=== PATIENT | male | born 1945 | race Caucasian/White ===

== ENCOUNTER → 2023-10-22 14:23 | Outpatient (REF) | payer MEDICARE, SELFPAY | LOC: RAD 14:23 | PROVIDERS: ATTENDING PHYSICIAN Surgery; REFERRING PHYSICIAN Family Medicine | DX: N13.2 Hydronephrosis with renal and ureteral calculous obstruction (principal) | CPT/HCPCS: 74018 ==

== ENCOUNTER → 2024-02-29 13:53 | Outpatient (REF) | payer MEDICARE, SELFPAY | LOC: HWRAD 13:53 | PROVIDERS: ATTENDING PHYSICIAN Surgery; FAMILY PHYSICIAN Family Medicine | DX: N13.2 Hydronephrosis with renal and ureteral calculous obstruction (principal) | CPT/HCPCS: 74018; 76775 ==

== ENCOUNTER → 2024-04-22 15:42 | Outpatient (REF) | payer OTHER, SELFPAY | LOC: HWRCS 15:42 | PROVIDERS: ATTENDING PHYSICIAN Family Medicine; REFERRING PHYSICIAN Internal Medicine Cardiovascular Disease | DX: I20.9 Angina pectoris, unspecified (principal) | CPT/HCPCS: 93306 ==

== ENCOUNTER → 2024-04-23 08:29 | Outpatient (REF) | payer OTHER, SELFPAY | LOC: DHCBC/DCA 08:29 | PROVIDERS: ATTENDING PHYSICIAN Family Medicine | DX: I20.9 Angina pectoris, unspecified (principal) | CPT/HCPCS: 78452; 93017; A9500; J2785 ==

== ENCOUNTER → 2024-05-14 12:26 | Outpatient (REF) | payer OTHER, SELFPAY | LOC: HWRAD 12:26 | PROVIDERS: ATTENDING PHYSICIAN Internal Medicine Cardiovascular Disease; FAMILY PHYSICIAN Family Medicine | DX: R06.09 Other forms of dyspnea (principal) | CPT/HCPCS: 71046 ==

== ENCOUNTER → 2024-06-19 08:03 | Outpatient (REF) | payer OTHER, SELFPAY | LOC: RAD 08:03 | PROVIDERS: ATTENDING PHYSICIAN Surgery; FAMILY PHYSICIAN Family Medicine | DX: N13.2 Hydronephrosis with renal and ureteral calculous obstruction (principal) | CPT/HCPCS: 74177; Q9967 ==

== ENCOUNTER → 2024-06-27 11:19 | Outpatient (REF) | payer OTHER, SELFPAY | LOC: RADI 11:19 | PROVIDERS: ATTENDING PHYSICIAN Surgery; FAMILY PHYSICIAN Family Medicine | DX: N28.89 Other specified disorders of kidney and ureter (principal) ==

== ENCOUNTER 2024-07-28 08:21 | Day surgery (SDC) | payer OTHER, SELFPAY ==
[2024-07-28] VITALS (26 sets, daily range): BP systolic 62–171; BP diastolic 63–98
[2024-07-28 07:15] LABS: % Basophils 0.3 % (0-2); % Eosinophils 6.7 % (0-6); % Immature Granulocytes 1.3 % (0-0.5); % Lymphocytes 29.3 % (20.5-51.1); % Monocytes 10.1 % (1.7-9.3); % Neutrophils 52.3 % (42.2-75.2); Absolute Eosinophils 0.3 10^3/uL (0-0.7); Absolute Immature Granulocytes 0.1 10^3/uL (0-0.05); Absolute Lymphocytes 1.1 10^3/uL (1.2-3.4); Absolute Monocytes 0.4 10^3/uL (0.1-0.6); Mean Corp Hgb Conc. 35.9 g/dL (33.0-37.0); Mean Corpuscular Hgb 29.2 pg (27.0-31.0); Mean Corpuscular Volume 81.4 fL (80.0-94.0); Mean Platelet Volume 9.7 fL (7.4-10.4); Nucleated Red Blood Cells % 0 % (-); Platelet Count 184 10^3/uL (130-400); Red Blood Cell Count 4.79 10^6/uL (4.70-6.10); Red Cell Dist. Width 14.1 % (11.5-14.5); White Blood Cell Count 3.9 10^3/uL (4.8-10.8)
[2024-07-28 07:25] LABS: INR 0.98; PT 13.3 Sec (11.4-14.6)
[2024-07-28 07:31] LABS: ALT (SGPT) 24 U/L (0-50); AST (SGOT) 27 U/L (17-59); Albumin 4.8 g/dl (3.5-5.0); Alkaline Phosphatase 61 U/L (38-126); Blood Urea Nitrogen 15 mg/dl (9-20); Calcium 9.6 mg/dl (8.4-10.2); Carbon Dioxide 22 mmol/L (22-30); Chloride 108 mmol/L (98-107); Direct Bilirubin 0.3 mg/dl (0.0-0.4); Glucose 162 mg/dl (70-99); Potassium 4.2 mmol/L (3.5-5.1); Sodium 143 mmol/L (135-145); Total Bilirubin 0.7 mg/dl (0.2-1.3); Total Protein 6.7 g/dl (6.3-8.2); eGFR > 60.00
[2024-07-28 08:09] LABS: LDH 160 U/L (120-246)
[2024-07-28] MEDS: NSS 1000 IV ×3 (08:15→19:20)
[2024-07-28] MEDS: DILAUDID 0.25 MG IV ×2 (12:00→14:17)
[2024-07-28 12:35] LABS: Glucose - Point of Care 171 mg/dl (70-99)
--- NOTE | 2024-07-28 12:35 | PTCARENOTE ---
PT states he is not diabetic, rather Pre-diabetic, check Blood sugar, 171
[2024-07-28 16:55] LABS: Glucose - Point of Care 209 mg/dl (70-99)
[2024-07-28] MEDS: CRESTOR 10 MG PO (17:56)
[2024-07-28 22:10] LABS: Glucose - Point of Care 189 mg/dl (70-99)
[2024-07-29] MEDS: NSS 1000 IV (03:06)
[2024-07-29 03:11] VITALS: BP 157/72
--- NOTE | 2024-07-29 07:35 | W.PN.GENERIC ---
Assessment / Plan
-
A/P:
79 yo male with renal right who underwent microwave ablation yesterday.
He is tolerating POs
He is voiding spontaneously without hematuria
Pain is well contrtolled
He is stable for discharge today
I spent over 30 minutes in performing history and physical exam, reviewing previous medical records, laboratory studies and all relevant imaging as well as reviewing the procedure and expected outcome with the patient as well as the follow up and
post procedure expectations
Physician Progress Note
Subjective
Mr. Hope is a pleasant 79-year-old male with past medical history significant for renal colic, prostate cancer with prostatectomy, hyperlipidemia and hypertension who was found to incidentally have a 2.5 cm lesion on his right kidney
concerning for renal cell carcinoma. He had a microwave ablation of this mass yesterday. He tolerated the procedure well. He denies any fever, chills, change in appetite, abdominal pain, nausea, vomiting, flank pain, hematuria or difficulty with
urinary stream.
PMH: Hyperlipidemia, hypertension, borderline diabetes, seasonal allergies, basal cell and squamous cell carcinoma, kidney stones, prostate cancer.
PSH: Tonsillectomy and adenoidectomy, appendectomy, hernia, colon resection, prostatectomy, Mohs surgery to left ear, nose and face.
Social History: Patient denies tobacco use
The patient's current medications were documented and reviewed at the time of this visit.
Current Medications: Atenolol 25 mg by mouth daily, Crestor 10 mg by mouth daily, doxycycline 50 mg 1 capsule by mouth daily, FiberCon q. day, hydrochlorothiazide 12.5 mg 1 capsule daily by mouth, magnesium oxide 400 mg 1 tablet daily by mouth,
metformin 500 mg 1 tablet with a meal 3 times a day, Osteo Bi-Flex regular strength daily, pantoprazole 40 mg 1 tablet by mouth daily, Plavix 75 mg 1 tablet by mouth daily, Rivastigmine 9.5 mg every 24 hours 1 patch transdermal daily, valsartan 320
mg 1 tablet by mouth daily,.
Allergies: NKDA.
Objective
Vital Signs
Temp Pulse Resp BP Pulse Ox
97.7 F 75 16 157/72 95
07/29/24 03:11 07/29/24 03:11 07/29/24 03:11 07/29/24 03:11 07/29/24 03:11
Lab Results
07/28/24 07:04
07/28/24 07:04
Physical examination: This is a well-nourished, well-developed 79-year-old male who is awake, alert and oriented in no acute distress. His color is good. His skin is warm and dry. His neck is supple. His heart is regular. His lungs are clear
throughout. His abdomen is soft and nontender with bowel sounds present. No CVA tenderness. No hemtoma. Dressing CDI. No lower extremity edema. He ambulates independently.
[2024-07-29 07:37] LABS: Glucose - Point of Care 148 mg/dl (70-99)
[2024-07-29 07:41] VITALS: BP 139/76
[2024-07-29] MEDS: PROTONIX 40 MG PO (08:51)
[2024-07-29] MEDS: ORETIC 12.5 MG PO (08:51)
[2024-07-29] MEDS: DIOVAN 320 MG PO (08:51)
[2024-07-29] MEDS: TENORMIN 25 MG PO (08:51)
[2024-07-29] MEDS: NSS IV (09:10)
[2024-07-29] MEDS: GLUCOPHAGE XR EXTENDED RELEASE 500 MG PO (09:11)
--- NOTE | 2024-07-29 10:44 | CM ---
Patient seen at bedside ; IA completed.
Patient states that he will go home with family and that he has no needs for VN. Patient to follow up with physician as directed. Discharge planned for today.
Plan: Discharge to home with no needs.
[2024-07-29 11:06] VITALS: BP 150/78
== END 2024-07-29 11:11 | disposition home or self-care (01) ==
LOC: SDS 08:21
PROVIDERS: ATTENDING PHYSICIAN Radiology Diagnostic Radiology; FAMILY PHYSICIAN Family Medicine; REFERRING PHYSICIAN Surgery
DX: D30.01 Benign neoplasm of right kidney (principal); D68.9 Coagulation defect, unspecified; D68.8 Other specified coagulation defects; N28.89 Other specified disorders of kidney and ureter
CPT/HCPCS: 50592; 88305; 36415; 77013; 80053; 82248; 82962; 83615; 85025; 85610

== ENCOUNTER 2025-01-13 23:40 | Observation (INO) | payer OTHER, SELFPAY ==
[2025-01-13 17:46] VITALS: BP 158/72
[2025-01-13 18:14] LABS: Hematocrit 39.1 % (39.0-52.0); Hemoglobin 13.5 g/dL (13.0-18.0); Mean Corp Hgb Conc. 34.5 g/dL (33.0-37.0); Mean Corpuscular Volume 81.5 fL (80.0-94.0); Nucleated Red Blood Cells % 0 % (-); Platelet Count 203 10^3/uL (130-400); Red Cell Dist. Width 13.9 % (11.5-14.5)
[2025-01-13 18:32] LABS: ALT (SGPT) 28 U/L (0-50); AST (SGOT) 30 U/L (17-59); Albumin 4.7 g/dl (3.5-5.0); Alkaline Phosphatase 53 U/L (38-126); Calcium 9.7 mg/dl (8.4-10.2); Carbon Dioxide 21 mmol/L (22-30); Chloride 107 mmol/L (98-107); Glucose 166 mg/dl (70-99); Potassium 4.1 mmol/L (3.5-5.1); Sodium 140 mmol/L (135-145); Total Protein 7.2 g/dl (6.3-8.2); eGFR 55.53
[2025-01-13 18:37] LABS: Troponin I < 0.012 ng/ml
[2025-01-13 18:41] LABS: Blood Urea Nitrogen 21 mg/dl (9-20)
--- NOTE | 2025-01-13 20:44 | ED.GENMED ---
History of Present Illness
General
Chief Complaint: Breathing Problem
Source: patient
Exam Limitations: none
Time Seen by Provider: 01/13/25 20:44
Nursing documentation reviewed up to this point in time: agreed with
History of Present Illness
History of Present Illness:
79-year-old male with a past medical history as noted presents to the ER for evaluation of shortness of breath. Patient reports onset of symptoms 3 days ago and have been constant since that time. He reports mainly symptoms are with exertion�he
describes that even walking a few steps requires him to stop to catch his breath. He says that this is an acute change from prior. He denies any associated chest pains. He has not had any coughing. Denies any fevers or chills. Has not noticed
any swelling in his legs. He does note that in April shortly after his he was having some shortness of breath and saw his associate professor of art history (Dr. Gill) and had echocardiogram and stress test that were reportedly normal. He says that he
attributed some of this to deconditioning and had been increasing his level of exercise and noticing improvement in his symptoms until 3 days ago.
Past History
Past History
ED Past Medical History: HTN, Hypercholesterolemia, NIDDM and Other (Kidney stones)
Social History
Personal:
Review of Systems
Review of Systems
All Other Systems: ROS reviewed and negative except as documented in HPI and ROS
Constitutional: Denies fever or chills
Respiratory: Reports trouble breathing; Denies cough
Cardiac: Denies chest pain or palpitations
ABD/GI: Denies abdominal pain, nausea or vomiting
: Denies flank pain
Musculoskeletal: Denies edema, neck pain or back pain
Neurological: Denies dizzy or headache
Phy Exam
Physical Exam
Physical Exam:
General: Awake, alert, oriented x3; no acute distress
Head: Normocephalic, atraumatic
Eyes: Conjunctiva normal, EOMI
Throat: Airway intact, handling secretions
Neck: Trachea midline, no JVD
Lungs: Clear to auscultation bilaterally, no wheezing, rales, rhonchi
Heart: Regular rate and rhythm, no murmurs, gallops, or rubs appreciated
Abd: Soft, non distended, nontender
Neuro: Grossly intact
Extremities: No edema in extremities, no calf tenderness, equal pulses in all extremities
Scores
Heart Failure Risk
Heart Failure Risk Score: Not Applicable
Heart Score for Chest Pain Patients
STEMI patient?: Not applicable
Withdrawal Assessment of Alcohol
Withdrawal Assessment Completed?: Not applicable
Course
Orders/Labs/Results
Orders:
Orders
01/13/25 17:51
ECG [Electrocardiogram (*1)] Urgent
Reason for Study: Shortness of Breath
EKG- Treatment ONCE
01/13/25 17:59
Complete Blood Count/With Diff Urgent
Comprehensive Metabolic Panel Urgent
NT-proBNP Urgent
Troponin I Urgent
01/13/25 20:54
Electrocardiogram (*1) Urgent
Reason for Study: Hypertension, Benign
EKG- Treatment ONCE
01/13/25 20:57
CT Chest PE Study Urgent
Comment:
Reason For Exam: worsening SOB
01/13/25 21:12
Troponin I Urgent
01/13/25 22:35
CARDIOLOGY CONSULT Urgent
Consulting Provider: Nolan Long
Was physician already notified: Yes
Abnormal Lab Results
01/13/25
17:59
Abs Immat Gran (auto) 0.1 H 10^3/uL
(0-0.05)
Immature Gran % 2.1 H %
(0-0.5)
Eosinophils % 6.2 H %
(0-6)
Carbon Dioxide 21 L mmol/L
(22-30)
BUN 21 H mg/dl
(9-20)
Glucose 166 H mg/dl
(70-99)
01/13/25 17:59
01/13/25 17:59
Vital Signs
Initial and Last Documented VS:
Initial Vital Signs
Temp Pulse Resp BP Pulse Ox
36.7 C 46 20 158/72 98
01/13/25 17:46 01/13/25 17:46 01/13/25 17:46 01/13/25 17:46 01/13/25 17:46
Last Documented Vital Signs
Temp Pulse Resp BP Pulse Ox
36.7 C 62 14 158/72 96
01/13/25 17:46 01/13/25 21:30 01/13/25 21:30 01/13/25 17:46 01/13/25 21:30
MDM/Problems Addressed
Differential Diagnosis Includes:
Anemia, CHF, pneumonia, pneumothorax, pulmonary embolism, anginal equivalent
MDM/Problems Addressed:
79-year-old male presents for evaluation of exertional dyspnea over the past few days. Vitals and exam as above. His EKG shows sinus rhythm no acute ischemia. Labs were sent in triage including a CBC which showed no anemia, CMP no clinically
significant abnormalities. His proBNP is normal and his troponin is undetectable. Will repeat troponin. His lungs sound completely clear very low suspicion for pneumonia will check CT chest to rule out pulmonary embolism. Will monitor on
telemetry and pulse oximetry and reassess after the above.
CT chest shows no PE or any other acute pathology to account for patient's symptoms. His second troponin is undetectable. Clinical reassessment patient remained stable. With no other clear cause for symptoms and patient's known cardiac risk
factors concerned that symptoms could be from progressive anginal symptoms. Given symptoms worsening over a relatively short period (3 days) we will plan to admit for continued evaluation�discussed with cardiology for consultation. Discussed case
with hospitalist for admission.
Chronic conditions affecting care:
Hypertension, hyperlipidemia, diabetes
Acute Exacerbation and/or Progression of Chronic Illness:
Acutely hypertensive
Acute Exacerbation and/or Progression of Chronic Illness: HTN
*Radiology
Radiology exam reviewed: radiology read reviewed
*Pulse Oximetry
SaO2: 98
Oxygen Mode of Delivery: Room air
Patient hypoxic: no (98%)
*EKG
Interpreted by ED Provider?: Yes
Heart Rate: 72
Rate: normal
Rhythm: sinus
Beach: normal axis
Interval: normal interval
QRS Pattern: normal QRS
Ischemia: no ischemia
*Critical Care Note
Total Time (30-74mins, 75-104mins- exclusive of procedures): Not Applicable
Data Reviewed
Review of Other/Old Records Reveals: Labs, Records and Testing (Reviewed echocardiogram and stress test from April 2024)
Source: patient and records
Patient Management
Discussion with other providers: Hospitalist (Discussed with hospitalist) and Deicer Tester (Discussed with cardiology)
Escalation/DeEscalation of care consider admission/obs:
Admission indicated
ED Attending Note
-
Portions of this chart may have been created with voice recognition software.� Occasional wrong word or��sound alike� substitutions may have occurred due to the inherent limitations of voice recognition software.
Discharge Plan
Departure
Patient Disposition: Admit
Date of Disposition: 01/13/25
Time of Disposition: 22:35
Admit to doctor: Keli
Presentation/result/management discussed w/ accepting MD/DO: Hospitalist
Discharge Problem:
Exertional dyspnea
Prescriptions:
No Action
clopidogrel 75 MG tablet
75 mg PO DAILY
pantoprazole 40 MG tablet,delayed release (DR/EC)
40 mg PO DAILY
rosuvastatin 10 MG tablet
10 mg PO QPM
rivastigmine 1 EACH patch 24 hour
1 ea transdermal DAILY
Patient Comments:
10/06/2020: 9.5mg/24HR
[id number] serr [Osteo Bi-Flex (5-Loxin)] 1 EACH tablet
1 tab PO DAILY
atenolol 25 MG tablet
25 mg PO DAILY
metformin 500 MG tablet extended release 24 hr
500 mg PO DAILY
multivitamin with folic acid [Tab-A-Dania] 1 TABLET tablet
1 tab PO DAILY
acetaminophen 325 MG tablet
650 mg PO Q4HPRN PRN (Reason: mild pain/EDEN/temp> 100.4F) 0RF
valsartan 320 mg Tablet
320 mg PO DAILY
calcium polycarbophil [FiberCon] 625 mg Tablet
625 mg PO DAILY
hydrochlorothiazide 12.5 mg Tablet
12.5 mg PO DAILY
doxycycline hyclate 50 mg Tablet
50 mg PO DAILY
magnesium oxide 400 mg magnesium Tablet
400 mg PO DAILY
Referrals:
Jose Elias Roque DO [Family Provider, Family Practice]
Interventions
Interventions:
*Risk Screen - Suicide Last Done: 01/13/25 17:46
*General Assessment Last Done: 01/13/25 17:46
*Neglect/Abuse Screening Last Done: 01/13/25 20:52
*ED- Fall Risk Assessment Last Done: 01/13/25 20:52
*ED COVID-19 Vaccine History Last Done: 01/13/25 20:52
*ED Influenza Vaccine History Last Done: 01/13/25 20:52
ED- Cardiac Assessment Last Done: 01/13/25 20:52
ED- Pulmonary Assessment Last Done: 01/13/25 20:52
Discharge Date and Time
Print Language: [place]
[2025-01-13 20:57] VITALS: BMI 33.8
[2025-01-13 21:47] LABS: Troponin I < 0.012 ng/ml
--- NOTE | 2025-01-13 22:42 | HPS.HSE ---
Family Physician
-
Family Physician: Jose Elias Roque
Chief Complaint
-
Dyspnea
History of Present Illness
This is a 79-year-old male with past medical history significant for renal colic, prostate cancer with prostatectomy, hyperlipidemia, mild memory loss and hypertension presenting to the emergency department with dyspnea.
Patient reports he has been having decreased exercise tolerance over the last year however since Sunday had significant changes in his symptoms. He said that since Sunday he has had exertional dyspnea with walking up a flight of stairs when he has
to stop inadequacies branch. He also reports that he has palpitations during the episode. Denies any diaphoresis. He denies any nausea vomiting. Also reports that he cannot walk the same distance without having to stop to rest multiple times.
He denies slime chest pain. He denies any orthopnea PND lower extreme edema or weight gain. He denies any palpitations at rest. He reports slight dizziness when walking up a flight of stairs but otherwise denies any dizziness.
Patient reported having upper respiratory infection about a month ago and has since recovered from that without any sequela. He denies any history of lung disease.
He reports having had a stress test earlier in the year which was inconclusive for ischemia. The echocardiogram at the time showed concentric LVH without diastolic dysfunction and preserved EF of 65%. No valvular abnormalities
In the emergency department he was afebrile, blood pressure was 158/70 with a pulse rate of 62 and was satting 98% on room air. ECG shows a normal sinus rhythm at a rate of 60 without any acute ischemic changes. Initial troponin was negative x 2.
BNP was negative. CBC was normal. Electrolytes BUN/creatinine were all in normal range.
CT of the chest with angiogram shows no evidence of pulmonary embolism. There is mild bronchial wall thickening with mild atelectasis at the lung bases, no evidence of pneumonia.
Medical History
Past Medical History
Past Medical History: Reports Cancer (prostate CA, basal cell skin cancer), HTN, Hypercholesterolemia and Other (nephrolithiasis)
Additional Past Medical History:
Renal cell cytoma status post ablation
Past Surgical History: Reports Appendectomy, Bowel Resection (Colon resection), Tonsilectomy, Urological (Prostatectomy) and Other (Hernia repair)
Social History
Tobacco: Non-smoker
Alcohol: Occasional
Drug: None
Personal:
Living: Alone
Family History
Family History: Not pertinent
Allergies / Home Medications
Allergies reflects when Allergies were last updated in [facility].
Home Medications with original date entered in [facility]
Allergy/Medication List:
Allergies
Allergy/AdvReac Type Severity Reaction Status Date / Time
No Known Allergies Allergy Verified 01/13/25 17:48
Home Medications
clopidogrel 75 mg tablet 75 mg PO DAILY 10/05/20
glucosamine [id number] basilio 1,500 mg-400 unit-100 mg tablet (Osteo Bi-Flex (5-Loxin)) 1 tab PO DAILY 10/05/20
pantoprazole 40 mg tablet,delayed release 40 mg PO DAILY 10/05/20
rivastigmine 9.5 mg/24 hour transdermal patch 1 ea transdermal DAILY 10/05/20
rosuvastatin 10 mg tablet 10 mg PO QPM 10/05/20
atenolol 25 mg tablet 25 mg PO DAILY 10/06/20
metformin 500 mg tablet,extended release 24 hr 500 mg PO DAILY 10/06/20
multivitamin with folic acid 400 mcg tablet (Tab-A-Dania) 1 tab PO DAILY 10/06/20
acetaminophen 325 mg tablet 650 mg (2 x 325 mg) PO Q4HPRN PRN mild pain/EDEN/temp> 100.4F 10/08/20
calcium polycarbophil 625 mg tablet (FiberCon) 625 mg PO DAILY 07/28/24
doxycycline hyclate 50 mg tablet 50 mg PO DAILY 07/28/24
hydrochlorothiazide 12.5 mg tablet 12.5 mg PO DAILY 07/28/24
magnesium oxide 400 mg PO DAILY 07/28/24
valsartan 320 mg tablet 320 mg PO DAILY 07/28/24
Review of Systems
-
History Source: Patient and Family
Constitutional: Reports No Symptoms
EENT: Reports No Symptoms
Respiratory: Reports Trouble Breathing
Cardiac: Reports Palpitations
Abdomen/GI: Reports No Symptoms
: Reports No Symptoms
Musculoskeletal: Reports No Symptoms
Skin: Reports No Symptoms
Neurological: Reports No Symptoms
Endocrine: Reports No Symptoms
Hematologic/Lymphatic: Reports No Symptoms
Psych: Reports No Symptoms
Physical Exam
Vital Signs
Vital Signs
Temp Pulse Resp BP Pulse Ox
98.1 F 62 14 158/72 96
01/13/25 17:46 01/13/25 21:30 01/13/25 21:30 01/13/25 17:46 01/13/25 21:30
Physical Exam
General: Well Developed, Well Nourished and No Apparent Distress
HEENT: NormoCephalic, Moist mucous membranes and Atraumatic
Respiratory: Clear
Cardiac: S1/S2 and Regular Rhythm; No Murmur or Rub
GI: Soft, Non Tender, Non Distended and Normal Bowel Sounds; No Organomegaly
Rectal: Deferred by Provider
Musculoskeletal: No Clubbing, No Cyanosis and No Edema
Skin: No Rash
Neuro: AO x 3 and Nonfocal/grossly intact
Psych: Calm
Laboratory Results
-
01/13/25 17:59
01/13/25 17:59
Laboratory Results
Total Bilirubin 0.8 mg/dl (0.2-1.3) 01/13/25 17:59
AST 30 U/L (17-59) 01/13/25 17:59
ALT 28 U/L (0-50) 01/13/25 17:59
Alkaline Phosphatase 53 U/L (38-126) 01/13/25 17:59
Troponin I < 0.012 ng/ml 01/13/25 21:12
Data Reviewed
-
CT Scan: Report Reviewed by me
Medical Tests (Nuc Med, Echo, EKG etc): Image Personally Visualized and interpreted
Lab Data: Labs Reviewed by me
Old Records: Reviewed
Impression/Plan
-
IMPRESSION:
79-year-old with past medical history of hypertension, prediabetes, TIA, hyperlipidemia, obesity presents to the emergency department with worsening dyspnea on exertion, particularly over the weekend and seen at PMD office today with same complaints
before being referred to the emergency department. He has clear lungs, lung parenchyma shows no acute abnormalities, CT PE is negative. EKG is nonischemic and troponin is negative. No fever, upper respiratory symptoms and no other signs of acute
infection.
PLAN:
Dyspnea -exertional dyspnea. He had recent cardiac ischemic workup in April with normal-appearing echocardiogram and inconclusive pharmacological stress testing. Here in the ED workup was negative for acute cardiac ischemia, PE, CHF, anemia,
PNA.
- admit to telemetry observation
- check tsh,cpk
- echo cardiogram
- ambulating sats
- lipid panel, a1c
- cardiology consultation
HTN
- continue daily atenolol valsartan and hctz
HLD
- continue crestor
Prediabetes
- hold metformin
TIA
- continue plavix/statin
DVT PPX - lovenox sq
Code status - Full Code
[2025-01-14 01:03] VITALS: BP 145/72
[2025-01-14] MEDS: CRESTOR 10 MG PO ×2 (01:03→17:03)
[2025-01-14] MEDS: TENORMIN 25 MG PO ×2 (01:03→21:53)
[2025-01-14] MEDS: TYLENOL 650 MG PO (01:05)
[2025-01-14] MEDS: PLAVIX 75 MG PO ×2 (01:06→21:54)
[2025-01-14 02:00] VITALS: BP 128/82; BP 156/74
--- NOTE | 2025-01-14 02:25 | PTCARENOTE ---
Pt is a 79-year-old arrived from ED at 02:06 Dx Dyspnea PMH significant for renal colic, prostate cancer with prostatectomy, hyperlipidemia, mild memory loss and hypertension. PT AOx3, no pain at present time, bed in a low position, call light in
reach.
[2025-01-14 03:19] VITALS: BMI 33.6
[2025-01-14 06:55] LABS: Hematocrit 36.2 % (39.0-52.0); Hemoglobin 12.6 g/dL (13.0-18.0); Mean Corp Hgb Conc. 34.8 g/dL (33.0-37.0); Mean Corpuscular Volume 83.8 fL (80.0-94.0); Platelet Count 173 10^3/uL (130-400); Red Cell Dist. Width 13.8 % (11.5-14.5)
[2025-01-14 07:03] LABS: Calcium 9.4 mg/dl (8.4-10.2); Carbon Dioxide 24 mmol/L (22-30); Chloride 108 mmol/L (98-107); Estimated Creatinine Clearance 80 ml/min; Glucose 151 mg/dl (70-99); HDL Cholesterol 31 mg/dl; LDL Cholesterol, Calculated 41 mg/dl; Magnesium 2.0 mg/dl (1.6-2.3); Potassium 4.3 mmol/L (3.5-5.1); Sodium 140 mmol/L (135-145); Very Low Density Lipoprotein 31 mg/dl (0-30); eGFR > 60.00
[2025-01-14 07:12] LABS: Glucose - Point of Care 151 mg/dl (70-99)
[2025-01-14 07:12] LABS: Blood Urea Nitrogen 22 mg/dl (9-20)
[2025-01-14 07:30] VITALS: BP 137/81
[2025-01-14] MEDS: DIOVAN 320 MG PO (07:46)
[2025-01-14] MEDS: PROTONIX 40 MG PO (07:46)
[2025-01-14] MEDS: EXELON PATCH 9.5 MG TRANSDERM (07:46)
[2025-01-14] MEDS: ORETIC 12.5 MG PO (07:46)
[2025-01-14] MEDS: MAGNESIUM OXIDE 400 MG PO (07:46)
--- NOTE | 2025-01-14 10:41 | CM ---
Reviewed the chart notes and spoke with the patient at the bedside. The patient is admitted under observational status. The [facility] letter was provided and explained. The patient had no questions with regards to the letter.
The patient resides alone in a one story home with three steps to enter. The patient reports no DME/VN/SNF in the past. The patient confirmed his pharmacy of choice is [facility] [address] [place]. CM continues to be available to patient/family and is
monitoring medical plan for needs at discharge.
Plan: Discharge to home when medically stable. No needs anticipated at this time.
--- NOTE | 2025-01-14 12:30 | CARDSERVLU ---
Echocardiogram with [facility] completed after protocol screening completed. Allergies verified.
Patent IV site: _L AC ____
IV site flushed with 0.9% NaCl pre and post administration.
Diluted bolus method utilized to enhance visualization of ventricular mcleod.
Total volume given: __5.5__ mL
Patient tolerated all procedures well without complications.
[2025-01-14 13:06] LABS: Glucose - Point of Care 158 mg/dl (70-99)
[2025-01-14] MEDS: NOVOLOG FLEXPEN-LOW RESISTANCE 1 UNITS SC ×2 (13:24→17:47)
--- NOTE | 2025-01-14 14:01 | CON.CAR ---
Addendum entered and electronically signed by Nolan Long MD 01/14/25 17:43:
I saw and examined the patient.
The Hides Soaker's note was reviewed and I agree with the note.
Comment:
GEN: No distress, awake, Ox3
HEENT: supple, anicteric, mmm
LUNGS: CTA, no wheezes/rales
CV: Reg, S1/S2, 1/6 syst LSB, no gallop
ABD: soft, BS+, NT/ND
EXT: No edema
NEURO: Gross non-focal
SKIN: No rash
Plan:
79-year-old male with past medical history of hypertension, hyperlipidemia and remote TIA presents with progressive dyspnea on exertion. He states over the past few days he had increased shortness of breath especially with exertion. He denies any
chest pains. He was having difficulty with activities he is prior been able to tolerate. He presented to the emergency room for further evaluation.
Nuclear stress test from April 2024 had no significant ischemia. Echocardiogram also has a preserved ejection fraction with no significant valve disease. Troponin was negative x 2 and proBNP is normal. Cardiology is asked to evaluate him for
further management. CT scan with no pulmonary embolism.
The etiology of his shortness of breath remains unclear. His cardiac evaluation is overall been unremarkable. Echocardiogram performed today also reveals a preserved ejection fraction with no significant valve disease. By exam he has no signs of
acute or chronic congestive heart failure. His troponins are negative. Previous stress test over this year was unremarkable.
At this point I would hold off on further cardiac evaluation. Agree with pulmonary function testing.
I did discuss with him if there is absolutely no cause for his severe dyspnea on exertion the next step will be right and left heart catheterization, however echocardiogram, CT scan, lab work, and EKG are all unremarkable to suggest a cardiac source
of his dyspnea. proBNP and pulmonary artery pressures were both within normal range.
He is stable for discharge from a cardiology standpoint. He has an appointment with [facility] cardiology in 2 weeks.
Original Note:
Consultation
Consultation Request
Date/Time Consultation Performed: 01/14/25
Requesting Provider: Dr. Dickey
Performing Provider: Tamra Lawrence PA-C for Dr. Long
Reason for Consultation: LOPEZ
Medical History
-
Chief Complaint: LOPEZ
History of Present Illness:
Patient is an 79-year-old male with past medical history of hypertension, hyperlipidemia, prostate cancer, right renal mass, history of remote TIA in 2001 on chronic Plavix who presented to [facility] for evaluation of dyspnea on exertion. He reports
since admission earlier this year, he has been attempting to walk more. He states he has been walking to the end of his road and back and typically has no issues. He states since starting this past Sunday he noted needing to stop about 3 times to
complete the same amount of exercise due to shortness of breath. He noted the same thing on Sunday and Sunday as well. He also reports that after picking up each cinder block, he had to stop to catch his breath which is not normal for him. He
states he was able to be on his tractor for 2 hours without issue. He also noted similar symptoms with going up a flight of stairs. He denies any chest discomfort, palpitations. He reports perhaps mild lightheadedness with some of the shortness
of breath episodes. He had a URI about 1 month ago and recovered without significant issue by his report. He had echo and stress test earlier this year which were without abnormality. He saw his primary for this yesterday and was referred to ER
for evaluation. Troponin negative. proBNP 165. Cardiology consulted for evaluation.
PMH:
Hypertension
Hyperlipidemia
History of type 2 diabetes
Prostate cancer status post prostatectomy
Right renal mass
History of remote TIA in 2001 on chronic Plavix
History of diverticulitis status post colon resection
Past Medical History
Past Medical History: Other (in HPI)
Social History
Tobacco: Non-Smoker
Alcohol: None
Personal:
Living: Alone
Employment: Retired
Family History
Family History: Other (afib)
Allergies / Home Medications
Allergy/AdvReac Type Severity Reaction Status Date / Time
No Known Allergies Allergy Verified 01/13/25 17:48
�Medication �Instructions �Recorded �Confirmed �Type
clopidogrel 75 mg tablet 75 mg PO DAILY Blood Clot 10/05/20 01/14/25 History
Prevention/Tx
pantoprazole 40 mg tablet,delayed 40 mg PO DAILY Gastrointestinal 10/05/20 01/14/25 History
release Issue
rivastigmine 9.5 mg/24 hour 1 ea transdermal DAILY 10/05/20 01/14/25 History
transdermal patch Neurological Condition
rosuvastatin 10 mg tablet 10 mg PO QPM High Cholesterol 10/05/20 01/14/25 History
atenolol 25 mg tablet 25 mg PO HS Blood Pressure 10/06/20 01/14/25 History
metformin 500 mg tablet,extended 500 mg PO DAILY Diabetes 10/06/20 01/14/25 History
release 24 hr
multivitamin with folic acid 400 1 tab PO DAILY Supplement 10/06/20 01/14/25 History
mcg tablet (Tab-A-Dania)
acetaminophen 325 mg tablet 650 mg (2 x 325 mg) PO Q4HPRN PRN 10/08/20 01/14/25 Rx
mild pain/EDEN/temp> 100.4F
calcium polycarbophil 625 mg 625 mg PO DAILY Supplement 07/28/24 01/14/25 History
tablet (FiberCon)
doxycycline hyclate 50 mg tablet 50 mg PO DAILY Infection 07/28/24 01/14/25 History
hydrochlorothiazide 12.5 mg tablet 12.5 mg PO DAILY Fluid 07/28/24 01/14/25 History
Retention/Swelling
magnesium oxide 400 mg PO DAILY Supplement 07/28/24 01/14/25 History
valsartan 320 mg tablet 320 mg PO DAILY Blood Pressure 07/28/24 01/14/25 History
Review of Systems
-
History Source: Patient
All other systems: Negative unless noted
Physical Exam
Vital Signs
Temp Pulse Resp BP Pulse Ox
97.7 F 58 16 137/81 97
01/14/25 07:30 01/14/25 07:46 01/14/25 07:30 01/14/25 07:46 01/14/25 07:30
Lab Results
01/14/25 06:15
01/14/25 06:15
Troponin I < 0.012 ng/ml 01/13/25 21:12
Dwf-E-Wgwlelelhdk Pept 168 pg/ml 01/13/25 17:59
Physical Exam
General: No Apparent Distress and Comfortable
HEENT: Normocephalic, Anicteric and Moist Mucous Membranes
Respiratory: Clear and Non Labored Respirations
Cardiac: S1/S2 and Regular Rhythm
GI: Soft, Non Tender, Non Distended and Normal Bowel Sounds
Musculoskeletal: No Clubbing, No Cyanosis and No Edema
Skin: Warm and Dry
Neuro: AO x 3
Impression / Plan
-
Primary Office Chair Assembler: Dr. Gill
Assessment:
LOPEZ
URI ~1 month ago
Hypertension
Hyperlipidemia
History of type 2 diabetes
Prostate cancer status post prostatectomy
Right renal mass
History of remote TIA in 2001 on chronic Plavix
History of diverticulitis status post colon resection
Echo 04/22/2024: EF 55 to 60%, mild concentric LVH, trace AR, mildly dilated aorta
Lexiscan nuclear stress test 04/23/2024: Probably normal study, small mild fixed inferolateral apical defect with no ischemia noted likely bowel attenuation artifact, EF 58%
Plan:
- Patient is an 79-year-old male who presents for evaluation of dyspnea on exertion noted since Tuesday 01/09. Denies rest symptoms. Denies chest pain. He does relay that he had a URI approximately 1 month ago and feels he recovered without issue.
Earlier this year he had issues with dyspnea and underwent cardiac evaluation including echo and stress test as well as pulmonary evaluation including PFTs and 6-minute walk test without significant abnormality.
- Troponins negative x 2
- EKG sinus rhythm without acute ST changes. On review of telemetry overnight in sinus rhythm/sinus bradycardia
- Chest CT without evidence of PE or pneumonia, but does show mild inflammatory bronchial wall thickening
- Would consider ambulatory pulse ox and pulmonary evaluation
- reviewed results of above echo and stress test from earlier this year with patient. Repeat echocardiogram pending
- If above without significant issue, could consider cardiac catheterization to rule out underlying coronary disease, however given negative cardiac evaluation earlier this year and since arrival, suspicion is low for this, and would attempt to
avoid invasive procedures if possible
- Continue outpatient Plavix
- LDL 41 on Lipitor 10 mg every afternoon
- Continue outpatient blood pressure regimen
- Discussed with nursing, discussed with hospitalist
Data Reviewed
-
EKG: Tracing Personally Visualized and interpreted
CT Scan: Report Reviewed by me
Medical Tests (Nuc Med, Echo etc): Report Reviewed by me
Labs: Labs Reviewed by me
Old Records: Reviewed
--- NOTE | 2025-01-14 14:12 | W.PN.HOSP.TC ---
Today's Communication/Plan
-
Follow echocardiogram
Obtain spirometry
Consult pulmonary
Assessment / Plan
Assessment / Plan
IMPRESSION:
79-year-old with past medical history of hypertension, prediabetes, TIA, hyperlipidemia, obesity presents to the emergency department with worsening dyspnea on exertion, particularly over the weekend and seen at PMD office today with same complaints
before being referred to the emergency department. He has clear lungs, lung parenchyma shows no acute abnormalities, CT PE is negative. EKG is nonischemic and troponin is negative. No fever, upper respiratory symptoms and no other signs of acute
infection.
PLAN:
Dyspnea -exertional dyspnea. He had recent cardiac ischemic workup in April with normal-appearing echocardiogram and inconclusive pharmacological stress testing. .
- Chest x-ray without any focal disease. Chest CT shows bronchial wall thickening but otherwise negative
- No evidence of CHF. No evidence of acute coronary syndrome.
Ongoing cardiac eval-echo pending. Cardiology input pending.
More than a month ago he had upper respiratory infection symptoms treated himself with OTC medication with resolved cough and phlegm. Currently has a bronchial wall thickening. Potentially could have postinfectious exercise-induced bronchial
asthma. Will obtain spirometry. Consult pulmonary.
HTN
- continue daily atenolol valsartan and hctz
HLD
- continue crestor
Prediabetes
- hold metformin
TIA
- continue plavix/statin
DVT PPX - lovenox sq
Code status - Full Code
Anticipated Discharge: Within 24 hours
Subjective/Interval History
-
Date of Service: January 14, 2025
No symptoms at rest. Denies any shortness of breath or chest pain at rest.
No cough or phlegm currently.
A month ago he had an upper respiratory infection symptom with cough and sputum production which he treated with [id number] medication and is doing okay. Denies any prior history of COPD, asthma. Non smoker.
No fever chills
In the past Many years agohe needed esophageal stretching but currently without any upper GI symptoms of nausea, GERD, heartburn.
Objective Data
-
Labs:
Laboratory Results
01/14/25
06:15
WBC 3.9 L
Hgb 12.6 L
Hct 36.2 L
Plt Count 173
Sodium 140
Potassium 4.3
Chloride 108 H
Carbon Dioxide 24
BUN 22 H
Creatinine 0.9
Glucose 151 H
Calcium 9.4
Vital Signs:
Vital Signs
Temp Pulse Resp BP Pulse Ox
97.7 F 58 16 137/81 97
01/14/25 07:30 01/14/25 07:46 01/14/25 07:30 01/14/25 07:46 01/14/25 07:30
I&O
01/13/25 01/14/25 01/15/25
06:59 06:59 06:59
Intake Total 720 / 720 660 / 660
Balance 720 / 720 660 / 660
Physical Exam
-
General: Comfortable
Respiratory: Non Labored Respirations; Negative Wheezes, Crackles or Accessory Resp Muscle Use
Cardiac: Regular Rhythm and S1/S2; Negative Tachycardic
GI: Soft and Nontender
Musculoskeletal: No Edema
Neuro: AO x 3
Psych: Calm; Negative Confused
Data Reviewed
-
Labs: Labs Reviewed by me
[2025-01-14 15:35] VITALS: BP 127/73
[2025-01-14 16:57] LABS: Glucose - Point of Care 181 mg/dl (70-99)
[2025-01-14] MEDS: LOVENOX 40 MG SC (17:03)
--- NOTE | 2025-01-14 17:05 | CON.PUL ---
Consultation
Consultation Request
Date/Time Consultation Requested: 01/14/2025
Date/Time Consultation Performed: 01/14/2025
Requesting Provider: Dr. Rai
Performing Provider: Dr. Og Salgado
Reason for Consultation: Exertional dyspnea
Medical History
-
History of Present Illness:
79-year-old man with past medical history significant for renal colic, prostate cancer with prostatectomy in the past, hyperlipidemia, mild memory loss and hypertension presented to the emergency room with dyspnea.
Reports decreased exercise tolerance for over a year. Since Sunday symptoms are more significant and occur with any activity.
Symptoms were significant climbing stairs associated with palpitations.
Denied chest pain or diaphoresis.
Denied any nausea.
Denies PND, orthopnea leg edema
Denies previous pulmonary disorders.
-
About a month ago he developed upper respiratory symptoms but he recovered without any lingering respiratory symptoms.
-
Earlier this year he had a stress test that was inconclusive.
Echocardiogram showed LVH. No valvular abnormalities.
-
On evaluation in the emergency room slightly hypertensive. Heart rate of 62 normal extremity.
EKG was nonischemic.
Cardiac biomarkers were negative.
-
CT of the chest showed no evidence for pulmonary embolism. No significant acute abnormalities
We were consulted on 01/14/2025 for evaluation of dyspnea.
-
Patient is known to me: Was seen by me once for exertional dyspnea that was chronic.
Patient has been taking care of his , he lost weight and he became deconditioned.
At that time pulmonary evaluation was negative.
Spirometry was essentially normal.
On ambulation patient had adequate heart rate response 64-93 on 05/28/2024.
In addition, he was seen by cardiology and evaluation was also negative.
Recommendation at that time was observation.
-
Past Medical History
Past Medical History: Other (See assessment and plan)
Social History
Tobacco: Non-smoker
Alcohol: Occasional
Drug: None
Personal:
Living: Alone
Occupational Exposures: Denies
Environmental Exposures: Denies
Family History
Family History: Reviewed & Not Pertinent
Allergies / Home Medications
Allergies
Allergy/AdvReac Type Severity Reaction Status Date / Time
No Known Allergies Allergy Verified 01/13/25 17:48
Home Medications
�Medication �Instructions �Recorded �Confirmed �Last Taken �Type
clopidogrel 75 mg tablet 75 mg PO DAILY Blood Clot 10/05/20 01/14/25 07/23/24 History
Prevention/Tx
pantoprazole 40 mg tablet,delayed 40 mg PO DAILY Gastrointestinal 10/05/20 01/14/25 07/27/24 History
release Issue
rivastigmine 9.5 mg/24 hour 1 ea transdermal DAILY 10/05/20 01/14/25 07/28/24 History
transdermal patch Neurological Condition
rosuvastatin 10 mg tablet 10 mg PO QPM High Cholesterol 10/05/20 01/14/25 07/27/24 History
atenolol 25 mg tablet 25 mg PO HS Blood Pressure 10/06/20 01/14/25 07/28/24 History
metformin 500 mg tablet,extended 500 mg PO DAILY Diabetes 10/06/20 01/14/25 07/27/24 History
release 24 hr
multivitamin with folic acid 400 1 tab PO DAILY Supplement 10/06/20 01/14/25 07/27/24 History
mcg tablet (Tab-A-Dania)
acetaminophen 325 mg tablet 650 mg (2 x 325 mg) PO Q4HPRN PRN 10/08/20 01/14/25 Unknown Rx
mild pain/EDEN/temp> 100.4F
calcium polycarbophil 625 mg 625 mg PO DAILY Supplement 07/28/24 01/14/25 07/27/24 History
tablet (FiberCon)
doxycycline hyclate 50 mg tablet 50 mg PO DAILY Infection 07/28/24 01/14/25 07/27/24 History
hydrochlorothiazide 12.5 mg tablet 12.5 mg PO DAILY Fluid 07/28/24 01/14/25 07/27/24 History
Retention/Swelling
magnesium oxide 400 mg PO DAILY Supplement 07/28/24 01/14/25 07/27/24 History
valsartan 320 mg tablet 320 mg PO DAILY Blood Pressure 07/28/24 01/14/25 07/27/24 History
Review of Systems
-
History Source: Patient
All other systems: Negative unless noted
Vitals / Labs / Diagnostic Testing
Vital Signs
Temp Pulse Resp BP Pulse Ox
97.4 F 61 16 127/73 96
01/14/25 15:35 01/14/25 15:35 01/14/25 15:35 01/14/25 15:35 01/14/25 15:35
Lab Data
01/14/25 06:15
01/14/25 06:15
Diagnostic Testing:
Physical Exam
-
HEENT: Normocephalic
Cardiovascular: S1/S2
Respiratory: Non-Labored Respirations
GI: Soft and Non Distended
Neurology: Awake, Alert, Oriented and No Motor Deficits
Skin: Warm
General: Comfortable
Assessment
-
79-year-old male with past medical history noted. Admitted with progressive shortness of breath over the last several days.
So far workup has been negative. Including CAT scans, echocardiogram and laboratory testing. We were consulted for further evaluation.
Progressive exertional dyspnea.
Negative troponin/normal proBNP
Normal hemoglobin
CT chest 01/13/2025: Bronchial wall thickening. No acute abnormalities. No pulmonary embolism.
Spirometry 05/2024: Normal.
Peripheral eosinophilia
Condition present prior admission:
Hypertension
Hyperlipidemia
Prediabetes
History of TIA
History of colon resection
Prior appendectomy
Tonsillectomy
Prostatectomy
Hernia repair
----
Assessment and plan:
Patient is known to me, seen 1 time in May 2024 for chronic exertional dyspnea.
At that time no other particular pulmonary symptoms. Spirometry was normal, chest x-ray showed no acute abnormalities. He was also seen by cardiology and evaluation was negative including echocardiogram and stress testing.
-
At that time he was deemed related to deconditioning and obesity. Patient has been taking care of his and not able to exercise. The recommendation was to observe and if the symptoms progress then to return to my office. He has not made an
appointment yet.
-
So far evaluation has included:
CT chest this admission without pulmonary embolism and no acute abnormalities.
Repeat echocardiogram this admission no acute abnormalities. No significant valvular abnormalities. No evidence for pulmonary hypertension. Mild LVH noted.
Cardiology correspondence reviewed: Based on normal testing not highly suggestive of coronary artery disease.
-
Recently patient had respiratory infection that he recovered.
In further review, there is peripheral eosinophilia noted on testing. This may suggest an allergic component.
Moreover, CT of the chest reports some nonspecific bronchial thickening.
He also reports nocturnal coughing with minimal phlegm production that has been chronic for many years.
Denies any eczema
Denies rhinorrhea
Denies prior admissions for wheezing.
-
Will contemplate atypical symptoms of asthma.
Will add Symbicort while in here and assess response. I can follow-up with him in about 3 to 4 weeks in my office.
Currently not bronchospastic, would not add prednisone taper.
We can arrange for short-term follow-up to reassess in the office. At that time we will obtain full pulmonary function testing.
-
Previously, he states that his chronic shortness of breath was slowly improving as during the summertime he was increasing physical activity. He has lost significant amount of weight and muscle mass while he was taking care of his .
Okay to continue physical activity from my perspective.
-
Weight loss also may be beneficial in this patient.
-
I also will consider referral to pulmonary rehabilitation once I see him in my office.
If stable overnight, consider discharge tomorrow morning on Symbicort.
-

Data reviewed:
Echocardiogram 01/14/2025:
Normal LVEF. Mild LVH. Mild MR. Trace TR. Estimated pulmonary pressure 21 mmHg.
-
CT chest 01/13/2025
No acute pulmonary embolism
No evidence for emphysema or interstitial lung disease
Bibasilar dependent atelectasis. Right lower lobe linear scarring.
Mild circumferential esophageal wall thickening.
Mild inflammatory bronchial wall thickening.
[2025-01-14 19:00] VITALS: BP 121/68
[2025-01-14] MEDS: SYMBICORT 160/4.5 MCG INHALER 2 PUFF INH (19:38)
[2025-01-14] MEDS: VIBRAMYCIN 50 MG PO (21:53)
[2025-01-14 23:00] VITALS: BP 134/76
[2025-01-15 03:10] VITALS: BP 137/74
[2025-01-15 06:00] VITALS: BMI 33.3
[2025-01-15 07:05] LABS: Glucose - Point of Care 160 mg/dl (70-99)
[2025-01-15] MEDS: SYMBICORT 160/4.5 MCG INHALER 2 PUFF INH (07:10)
[2025-01-15 07:40] VITALS: BP 134/77
[2025-01-15] MEDS: PROTONIX 40 MG PO (08:00)
[2025-01-15] MEDS: DIOVAN 320 MG PO (08:00)
[2025-01-15 08:01] LABS: Blood Urea Nitrogen 19 mg/dl (9-20); Calcium 9.2 mg/dl (8.4-10.2); Carbon Dioxide 24 mmol/L (22-30); Chloride 106 mmol/L (98-107); Estimated Creatinine Clearance 80 ml/min; Glucose 157 mg/dl (70-99); Potassium 3.9 mmol/L (3.5-5.1); Sodium 138 mmol/L (135-145); eGFR > 60.00
[2025-01-15] MEDS: EXELON PATCH 9.5 MG TRANSDERM (08:01)
[2025-01-15] MEDS: MAGNESIUM OXIDE 400 MG PO (08:01)
[2025-01-15] MEDS: ORETIC 12.5 MG PO (08:01)
[2025-01-15] MEDS: NOVOLOG FLEXPEN-LOW RESISTANCE 1 UNITS SC (08:02)
[2025-01-15 09:12] LABS: Glycohemoglobin (HgbA1c) 7.6 % (4.0-5.6)
--- NOTE | 2025-01-15 10:08 | CM ---
Reviewed the chart notes. Patient seen ambulating in room ad raffi. CM continues to be available to patient/family and is monitoring medical plan for needs at discharge.
Plan: Discharge to home when medically stable. No needs identified at this time.
--- NOTE | 2025-01-15 10:27 | W.PN.PUL3 ---
Today's Communication / Plan
-
Discharge on Symbicort
Increase physical activity as tolerated
Short-term follow-up in the pulmonary office with pulmonary function testing
Okay to discharge from my perspective
Sign off
Assessment
-
79-year-old male with past medical history noted. Admitted with progressive shortness of breath over the last several days.
So far workup has been negative. Including CAT scans, echocardiogram and laboratory testing. We were consulted for further evaluation.
Progressive exertional dyspnea.
Negative troponin/normal proBNP
Normal hemoglobin
CT chest 01/13/2025: Bronchial wall thickening. No acute abnormalities. No pulmonary embolism.
Spirometry 05/2024: Normal.
Peripheral eosinophilia
Condition present prior admission:
Hypertension
Hyperlipidemia
Prediabetes
History of TIA
History of colon resection
Prior appendectomy
Tonsillectomy
Prostatectomy
Hernia repair
----
Assessment and plan:
Patient is known to me, seen 1 time in May 2024 for chronic exertional dyspnea.
At that time no other particular pulmonary symptoms. Spirometry was normal, chest x-ray showed no acute abnormalities. He was also seen by cardiology and evaluation was negative including echocardiogram and stress testing.
-
At that time he was deemed related to deconditioning and obesity. Patient has been taking care of his and not able to exercise. The recommendation was to observe and if the symptoms progress then to return to my office. He has not made an
appointment yet.
-
So far evaluation has included:
CT chest this admission without pulmonary embolism and no acute abnormalities.
Repeat echocardiogram this admission no acute abnormalities. No significant valvular abnormalities. No evidence for pulmonary hypertension. Mild LVH noted.
Cardiology correspondence reviewed: Based on normal testing not highly suggestive of coronary artery disease.
-
Recently patient had respiratory infection that he has recovered.
In further review, there is peripheral eosinophilia noted on testing. This may suggest an allergic component.
Moreover, CT of the chest reports some nonspecific bronchial thickening.
He also reports nocturnal coughing with minimal phlegm production that has been chronic for many years.
Denies any eczema
Denies rhinorrhea
Denies prior admissions for wheezing.
-
Possible adult onset asthma.
Discharged on Symbicort 160/4.5 while in here and assess response during our next visit. Will arrange for follow-up in the next 3 weeks in my office.
Currently not bronchospastic, would not add prednisone taper.
Will obtain full pulmonary function testing during our next visit
May qualify for pulmonary rehabilitation-patient can increase physical activity as tolerated at home.
-
Previously, he states that his chronic shortness of breath was slowly improving as during the summertime he was increasing physical activity. He has lost significant amount of weight and muscle mass while he was taking care of his .
Okay to continue physical activity from my perspective.
-
Weight loss also may be beneficial in this patient.
-
Discussed with Dr. Rai
I am okay with discharge from my perspective. Follow-up with Dr. Salgado in 3 weeks.
-

Data reviewed:
Echocardiogram 01/14/2025:
Normal LVEF. Mild LVH. Mild MR. Trace TR. Estimated pulmonary pressure 21 mmHg.
-
CT chest 01/13/2025
No acute pulmonary embolism
No evidence for emphysema or interstitial lung disease
Bibasilar dependent atelectasis. Right lower lobe linear scarring.
Mild circumferential esophageal wall thickening.
Mild inflammatory bronchial wall thickening.
Subjective Data
-
Date of Service:
Date of Service: January 15, 2025
Chief Complaint: Pulmonary Follow Up (Chronic shortness of breath)
Subjective:
No new complaints
Inhalers started 01/14/2025.
No significant wheezing
Has been able to ambulate around the [place] without significant discomfort
Review of Systems
Cardiopulmonary: Dyspnea, Dyspnea on Exertion (Chronic), Cough (n) and Sputum Production (n)
Objective Data
Data Reviewed
Vital Signs / I&O / Oxygen:
Vital Signs
Temp Pulse Resp BP Pulse Ox
97.7 F 100 16 132/73 95
01/15/25 07:40 01/15/25 08:00 01/15/25 07:40 01/15/25 08:00 01/15/25 07:40
Intake and Output
01/14/25 01/15/25 01/16/25
06:59 06:59 06:59
Intake Total 720 / 720 1437 / 1437
Balance 720 / 720 1437 / 1437
SaO2 95
Physical Exam
General: Comfortable
HEENT: Normocephalic
Cardiovascular: S1-S2
Respiratory: Non-Labored Respirations
GI: Soft and Non Distended
Neurology: Awake, Alert, AO x 3 and No Motor Deficits
Skin: Warm
Labs/Micro/Reports
Lab Data
01/14/25 06:15
01/15/25 07:01
[2025-01-15 11:25] VITALS: BP 135/74
[2025-01-15 11:28] LABS: Glucose - Point of Care 256 mg/dl (70-99)
[2025-01-15] MEDS: NOVOLOG FLEXPEN-LOW RESISTANCE 3 UNITS SC (12:15)
--- NOTE | 2025-01-15 14:51 | W.DCSUMMARY ---
Discharge Summary
Discharge Data
Date of Admission: 01/13/25
Date of Discharge: 01/15/25
-
Pending Results: No
Hospital Course
Primary diagnosis:
Exertional shortness of breath
Secondary diagnosis:
Diabetes mellitus type 2
Essential hypertension
Hyperlipidemia
History of transient ischemic attack
Hospital course:
Patient presented with exertional dyspnea which is getting progressively worse. He had recent cardiac ischemic workup in April with normal-appearing echocardiogram and inconclusive pharmacological stress testing. He had no active chest pain or
angina symptoms. He had no evidence of NM. Was seen by cardiology and had a repeat echocardiogram which showed no wall motion abnormalities, mild MR, estimated pulm artery pressure of 21 mmHg and normal EF. They did not see any obvious cardiac
factors playing into the role. If no other etiology evident they would consider than the right and left heart cath. He will follow-up with cardiology as an outpatient.
He recovered from an upper respiratory tract infection and month ago. He treated himself at home with OTC medication. His chest x-ray showed no focal disease ; chest CT showed bronchial wall thickening but otherwise negative for PE, pneumonia or
heart failure.
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 Pulmonary consultation was obtained. Bedside spirometry was okay. They wanted to give a trial of steroid inhaler which was prescribed and
they will follow him in office with full lung function test.
Today patient without any symptoms of chest pain or shortness of breath at rest. He did too much in the hospital to perceive any symptom. Chest was clear. Afebrile. Blood pressure 135/74.
He was deemed stable for discharge home today.
Portions of this chart may have been created with voice recognition software. Occasional wrong word or 'sound alike' substitutions may have occurred due to the inherent limitations of voice recognition software.
Consultants on board:
Pulmonary-Og Garcia
Cardiology-Nolan Maciel
Discharge Plan
-
Patient Disposition: Home (Routine Discharge)
Discharge Diagnosis/Procedures: Exertional shortness of breath
Diet: Diabetic, Carb Controlled
Activity: As tolerated
Driving Restrictions: As prior to admission
Referrals:
Jose Elias Roque DO [Family Provider, Family Practice] - in less than 1 week
Og Fowler MD [Active, Pulmonary Medicine] - in three to four weeks
Referral Note: Full PFT
Magalie Gill DO [Active, Cardiology] - 02/10/25 9:40 am
Prescriptions:
New
budesonide-formoterol [Symbicort] 160-4.5 mcg/actuation Hfa Aerosol Inhaler
2 puff inhalation R BID Qty: 10.2 1RF
Continued
clopidogrel 75 MG tablet
75 mg PO DAILY
pantoprazole 40 MG tablet,delayed release (DR/EC)
40 mg PO DAILY
rosuvastatin 10 MG tablet
10 mg PO QPM
rivastigmine 1 EACH patch 24 hour
1 ea transdermal DAILY
Patient Comments:
10/06/2020: 9.5mg/24HR
atenolol 25 MG tablet
25 mg PO HS
metformin 500 MG tablet extended release 24 hr
500 mg PO DAILY
multivitamin with folic acid [Tab-A-Dania] 1 TABLET tablet
1 tab PO DAILY
acetaminophen 325 MG tablet
650 mg PO Q4HPRN PRN (Reason: mild pain/EDEN/temp> 100.4F) 0RF
valsartan 320 mg Tablet
320 mg PO DAILY
calcium polycarbophil [FiberCon] 625 mg Tablet
625 mg PO DAILY
hydrochlorothiazide 12.5 mg Tablet
12.5 mg PO DAILY
doxycycline hyclate 50 mg Tablet
50 mg PO DAILY
magnesium oxide 400 mg magnesium Tablet
400 mg PO DAILY
Discharge Orders:
Discharge Patient (As Directed); Ordered 01/15/25
Ordered By: Sav aRi
Discharge Date and Time
Discharge Date/Time: 01/15/25 13:26
Print Language: OCCITAN
== END 2025-01-15 13:26 | disposition home or self-care (01) ==
LOC: 2 SOUTH 23:40
PROVIDERS: Emergency Medicine; ADMITTING PHYSICIAN Internal Medicine; ATTENDING PHYSICIAN Internal Medicine; CONSULT PHYSICIAN Internal Medicine Cardiovascular Disease; CONSULT PHYSICIAN Internal Medicine Critical Care Medicine; EMERGENCY PHYSICIAN Emergency Medicine; FAMILY PHYSICIAN Family Medicine
DX: R06.02 Shortness of breath (principal); I10 Essential (primary) hypertension; G45.9 Transient cerebral ischemic attack, unspecified; E78.00 Pure hypercholesterolemia, unspecified; E11.9 Type 2 diabetes mellitus without complications; E66.9 Obesity, unspecified; Z68.33 Body mass index [BMI] 33.0-33.9, adult; Z79.899 Other long term (current) drug therapy; Z86.73 Personal history of transient ischemic attack (TIA), and cerebral infarction without residual deficits; J98.11 Atelectasis; Z79.02 Long term (current) use of antithrombotics/antiplatelets; Z79.84 Long term (current) use of oral hypoglycemic drugs
CPT/HCPCS: 71275; 80048; 80053; 80061; 82962; 83036; 83735; 83880; 84443; 84484; 85025; 85027; 93005; 93306; 94010; 94640; 99285; G0378; Q9950; Q9967

== ENCOUNTER → 2025-03-30 12:07 | Outpatient (REF) | payer OTHER, SELFPAY | LOC: RAD 12:07 | PROVIDERS: ATTENDING PHYSICIAN Physician Assistant; FAMILY PHYSICIAN Family Medicine; OTHER PHYSICIAN Surgery; REFERRING PHYSICIAN Radiology Diagnostic Radiology | DX: N28.89 Other specified disorders of kidney and ureter (principal) | CPT/HCPCS: 74177; Q9967 ==